=== PATIENT | male | born 1990 | race African-American/Black ===

== ENCOUNTER 2024-03-18 22:21 | Emergency (ER) | payer BC ==
[2024-03-18] MEDS ORDERED: Ketorolac Tromethamine 30 MG (1 mL) VIAL ONE (22:59)
[2024-03-18] MEDS ORDERED: traMADol HCl 50 MG TAB ONE (23:06)
== END 2024-03-18 23:15 | disposition home or self-care (01) ==
LOC: ERS 22:21
DX: K03.81 Cracked tooth (principal)
CPT/HCPCS: 99282; J1885